=== PATIENT | female | born 1955 | race Caucasian/White ===

== ENCOUNTER 2017-03-10 09:10 | Day surgery (SDC) | payer BC ==
[2017-03-09 15:48] LABS: HEMATOCRIT 43.9 % (36.0-48.0); HEMOGLOBIN 14.6 g/dL (12-16); MCH 30.7 pg (26.0-34.0); MCHC 33.3 g/dL (31.0-37.0); MCV 92.2 fL (80.0-100.0); MEAN PLATELET VOLUME 11.7 fL (7.4-10.4); RBC 4.76 10x6/uL (4.00-5.40); RDW 13.2 % (11.5-14.5); WBC 8.4 10x3/uL (4.8-10.8)
[2017-03-09 16:12] LABS: CALC OSMOLALITY 282 mosm/kg (275-300); CALCIUM 9.1 mg/dL (8.5-10.1); CHLORIDE - SERUM 104 mmol/L (98-107); CREATININE - SERUM 0.7 mg/dL (0.6-1.3); GLUCOSE 94 mg/dL (74-106); POTASSIUM - SERUM 3.9 mmol/L (3.5-5.1); SODIUM 142 mmol/L (136-145); UREA NITROGEN 12 mg/dL (7-18); eGFR NON AFRICAN AMERICAN 90 mL/min (90-120)
[~2017-03-10] VITALS: Ht 165.1 cm; Wt 93.0 kg
--- NOTE | ~2017-03-10 | OP ---
PATIENT NAME: RICHAR MONTEJO MEDICAL RECORD: [id number] :55 LOCATION:D.OPS ADMISSION DATE: SURGEON: KACIE DIAMOND DPM DATE OF OPERATION: 03/10/2017 PREOPERATIVE DIAGNOSES: 1. Hallux abducto valgus, left foot. 2. First met cuneiform joint instability, left foot. POSTOPERATIVE DIAGNOSES: 1. Hallux abducto valgus, left foot. 2. First met cuneiform joint instability, left foot. PROCEDURES: 1. Burch bunionectomy, left foot. 2. Fusion, first met cuneiform joint, left foot. ANESTHESIA: Local with IV sedation utilizing lidocaine and Marcaine plain, approximately 15 cc total around the first ray. HEMOSTASIS: Left thigh tourniquet at 350 mmHg. PREOPERATIVE DETAILS: The patient was taken to the OR, placed on the operating table in a supine position. This was followed by induction of general anesthesia and infiltration of local anesthetic. Left extremity was then prepped and draped in the usual aseptic technique followed by exsanguination of the extremity and inflation of tourniquet. PROCEDURE #1: Burch bunionectomy, left foot. A 15-blade was used to create an incision over the dorsal aspect of the first metatarsal extending to the base of the proximal phalanx of the hallux. The incision deepened down through subcutaneous tissue to the first MPJ capsule where an inverted L capsulotomy was performed. The medial capsular flap was reflected and the head of the first metatarsal was delivered. A sagittal saw was used to resect the medial eminence. Attention was directed to the first interspace where a lateral release was then performed. Good clinical reduction of the lateral contractures was verified. PROCEDURE #2: First met cuneiform joint fusion, left foot. The incision as described in #1 was lengthened proximal dorsal to the first medial cuneiform. The incision deepened down through subcutaneous tissue being sure to avoid all vital structures. Dissection was carried down to the periosteum where a linear periosteal incision was made fraying the first met cuneiform joint. A sagittal saw was used to resect the joint. The joint was temporarily fixated and permanently fixated with the 5-hole plate, 1 hole being across the fusion site for compression. C-arm was used to verify good placement as well as orientation of the first ray. Excellent rigid internal fixation was noted. The wound was flushed. The deep tissue and joint capsule were closed with 2-0 Vicryl, the subcutaneous tissue with 4-0 Rapide and the skin was closed with 4-0 Rapide in a subcuticular technique. Adaptic, 4 x 4 and Conform were used to dress the wound followed by application of a modified Lopez compression dressing. The tourniquet was deflated. POSTOPERATIVE DETAILS: The patient tolerated the procedure well and left the OR with vital signs stable and vascular status at preop levels. The patient was OPERATIVE REPORT [id number] RICHAR MONTEJO transported to recovery per anesthesia in stable condition. TRANSINT:[id number] Voice Confirmation ID: [id number] DOCUMENT ID: [id number] KACIE DIAMOND DPM CC: [id number] DICTATION DATE: 03/10/17 1347 [employer]NAGER [employer] EQUIPMENT: 03/10/172127 [facility] 03/10/17 [id number] [place] [address]
[~2017-03-10 09:10] MED LIST: NORVASC5 MG PO
[2017-03-10] MEDS ORDERED: LIPITOR10 MG PO (10:57)
[2017-03-10] MEDS ORDERED: FUROSEMIDE20 MG PO (10:58)
[2017-03-10] MEDS ORDERED: OMEGA 3 FISH OI1 CAP PO (11:00)
[2017-03-10] MEDS ORDERED: VITAMIN E100 UNIT PO (11:00)
[2017-03-10] MEDS ORDERED: VITAMIN B-12100 MCG PO (11:00)
[2017-03-10 11:03] VITALS: BP 120/70; Ht 165.1 cm; Wt 93.0 kg
== END 2017-03-10 15:20 | disposition home or self-care (01) ==
LOC: D.OPS 09:10 → D.PAN 11:45 → D.OPS 15:20
PROVIDERS: Anesthesiology
DX: M20.12 Hallux valgus (acquired), left foot (principal); I10 Essential (primary) hypertension; Z01.812 Encounter for preprocedural laboratory examination